=== PATIENT | male | born 1995 | race African-American/Black ===

== ENCOUNTER 2017-07-25 22:47 | Emergency (ER) | payer OTHER, SELFPAY ==
[2017-07-25 22:48] VITALS: BP 136/75; PULSE 100; RESP 14; TEMP 35.8; O2SAT 98; BMI 25.4
--- NOTE | 2017-07-25 23:04 | RAD_ITS ---
STUDY: X-RAY CHEST REASON FOR EXAM: Male, 21 years old. Cough TECHNIQUE: Frontal and lateral views COMPARISON: None. FINDINGS: The lungs are expanded. Possible left retrocardiac infiltrate. Normal size heart. Normal mediastinum and salina. Normal visualized pulmonary arteries. Normal visualized aortic arch and descending thoracic aorta. Normal visualized thoracic spine. Normal visualized ribs, clavicles, and shoulders. There is no demonstrated abnormality of the visualized soft tissue structures of the upper abdomen. RAD/Chest PA and Lateral IMPRESSION: Possible left retrocardiac infiltrate. Electronically Signed: Jer Grimaldo DO at 23:36 EDT Tel [phone], Service support ,
[2017-07-25] MEDS: Albuterol 2.5 MG/3 ML VIAL.NEB. INHALATION (23:13)
[2017-07-25 23:15] VITALS: PULSE 88; RESP 14
--- NOTE | 2017-07-25 23:27 | ED.VISSUMM ---
- ER Visit Summary Date of Service: 07/25/17 Chief Complaint: Cough History of Present Illness: The patient is a 21 M ends to the emergency department cough. Patient states she has been having it intermittently for the past month. He has had some intermittent productive sputum. He denies any fevers or chills. He denies orthopnea. He has no history of lung disease. He does not smoke. He said no hemoptysis. He thinks it is related to stress. He denies any history of allergies. Physical Examination: Vital signs reviewed General: Well-nourished, well-developed Head: Normocephalic, atraumatic Eyes: Pupils equal and reactive, extraocular muscles intact Neck, supple, no lymphadenopathy Heart: Regular rate and rhythm Respiratory: No distress, clear bilaterally Abdomen: Soft, nontender, nondistended, no peritoneal signs Back: Nontender Extremities: Nontender, no edema, no cords Skin: Normal color no rash Neuro: Alert and oriented, no focal or lateralizing deficits Test Results: [] Emergency Department Course and Treatment: The patient has no focal change in lung sounds. With his history of cough, I did obtain a chest x-ray. There is a scant retrocardiac infiltrate. The patient is not hypoxic. Is not tachypneic. I do feel that he is safe for outpatient therapy. He will be started on azithromycin. Is given his first dose here and will be discharged home. He was counseled on concerning symptoms and reasons to return. He is comfortable with this plan of care. Treatment Plan: [] Disposition: Discharge Impression:. Community-acquired pneumonia This note was generated with [employer] dictation software. It may contain incorrect words, spelling, and punctuation that were not noted in review of the chart prior to signing ED Disposition - Plan for ED Patient: Chief Complaint: Cough Instructions: ED Pneumonia Adult Prescriptions: Azithromycin [Zithromax] 250 mg PO DAILY #4 tab Referrals: [facility] Doctor,Out of [Primary Care Provider] -
[2017-07-26] MEDS: Azithromycin 250 MG Tablet 500 MG PO (00:02)
[2017-07-26 00:03] VITALS: O2SAT 97
[2017-07-26 00:04] VITALS: PULSE 92; RESP 20; O2SAT 99
== END 2017-07-26 00:04 | disposition home or self-care (01) ==
PROVIDERS: Emergency Provider Emergency Medicine
DX: J18.9 Pneumonia, unspecified organism (principal)
CPT/HCPCS: 71046; 94640; 99283